=== PATIENT | female | born 1980 | race Caucasian/White ===

== ENCOUNTER 2016-09-03 15:22 | Emergency (ER) | payer OTHER ==
[~2016-09-03] VITALS: Ht 165.1 cm; Wt 65.8 kg
[~2016-09-03 15:22] MED LIST: ALEVE220 MG PO; FLEXERIL PO; KEFLEX500 MG PO; LEVAQUIN 250 M250 MG PO; NOHOMEMEDICATIONS; NORCO 5-325 TA1 EACH PO; PERCOCET 5-3251 EACH PO; PERCOCET PO; PROBIOTIC1 EAC1 PO; TYLENOL325 MG PO; VANCOMYCIN100 MG/ML PO; ZOFRAN ODT4 MG PO
[2016-09-03 15:58] LABS: URINE BILIRUBIN NEGATIVE (Negative); URINE BLOOD 3+ (Negative); URINE COLOR YELLOW; URINE GLUCOSE-RANDOM* NEGATIVE (Negative); URINE KETONES NEGATIVE (Negative); URINE NITRITE NEGATIVE (Negative); URINE PROTEIN (DIPSTICK) NEGATIVE (Negative); URINE SPECIFIC GRAVITY <= 1.005 (1.003-1.035); URINE UROBILINOGEN 0.2 E.U./dl (0.2-1.0)
[2016-09-03 16:05] LABS: BACTERIA None Seen /HPF (None Seen); SQUAMOUS 0-3 Few /LPF (0-3); URINE RBC 3-10 Few /HPF (0-2); URINE WBC None Seen /HPF (0-5)
[2016-09-03 16:06] LABS: CASTS None Seen /LPF (None Seen); CRYSTALS None Seen /LPF (None Seen)
[2016-09-03 16:36] LABS: ABSOLUTE NEUTROPHILS 6.3 thou/uL (1.4-8.2); BASOPHILS 0.6 % (0.0-2.0); EOSINOPHILS 0.3 % (0.0-3.0); HEMATOCRIT 40.4 % (37.0-47.0); LYMPHOCYTES 17.5 % (24.0-44.0); MANUAL DIFF NO; MCH 31.7 pg (26.0-34.0); MCHC 34.6 g/dL (28.0-37.0); MCV 91.7 fL (80.0-100.0); MONOCYTES 5.2 % (1.0-8.0); PLATELET COUNT 230 thou/uL (150-400); POLYS 76.4 % (36.0-66.0); RBC 4.41 mil/uL (4.20-5.00); WBC 8.2 thou/uL (4.0-11.0)
[2016-09-03 16:39] LABS: CALCIUM 8.6 mg/dL (8.5-10.1); CREATININE 0.7 mg/dL (0.6-1.0); POTASSIUM 3.7 mmol/L (3.5-5.1)
[2016-09-03] MEDS ORDERED: NORCO 5-325 TA1 EACH PO (17:24)
[2016-09-03] MEDS ORDERED: FLOMAX0.4 MG PO (17:24)
== END 2016-09-03 17:46 | disposition home or self-care (01) ==
LOC: ER 15:22
PROVIDERS: Nurse Practitioner
DX: N20.0 Calculus of kidney (principal); N18.9 Chronic kidney disease, unspecified; F17.210 Nicotine dependence, cigarettes, uncomplicated; Z90.710 Acquired absence of both cervix and uterus; Z90.89 Acquired absence of other organs; Z96.0 Presence of urogenital implants; Z88.1 Allergy status to other antibiotic agents; Z88.6 Allergy status to analgesic agent

== ENCOUNTER 2017-02-04 11:45 | Emergency (ER) | payer OTHER ==
[~2017-02-04] VITALS: Ht 165.1 cm; Wt 65.8 kg
[~2017-02-04 11:45] MED LIST changes: +FLOMAX0.4 MG PO; +IBUPROFEN 600600 M1 PO
[2017-02-04 12:29] LABS: URINE BILIRUBIN NEGATIVE (Negative); URINE BLOOD 3+ (Negative); URINE COLOR YELLOW; URINE GLUCOSE-RANDOM* NEGATIVE (Negative); URINE KETONES NEGATIVE (Negative); URINE NITRITE NEGATIVE (Negative); URINE PROTEIN (DIPSTICK) NEGATIVE (Negative); URINE UROBILINOGEN 0.2 E.U./dl (0.2-1.0)
[2017-02-04 12:48] LABS: ABSOLUTE NEUTROPHILS 8.7 thou/uL (1.4-8.2); BASOPHILS 0.6 % (0.0-2.0); EOSINOPHILS 0.4 % (0.0-3.0); HEMATOCRIT 42.5 % (37.0-47.0); HEMOGLOBIN 14.5 gm/dL (12.0-15.0); LYMPHOCYTES 13.7 % (24.0-44.0); MCH 31.6 pg (26.0-34.0); MCHC 34.2 g/dL (28.0-37.0); MCV 92.6 fL (80.0-100.0); MONOCYTES 3.8 % (1.0-8.0); PLATELET COUNT 223 thou/uL (150-400); POLYS 81.5 % (36.0-66.0); RBC 4.59 mil/uL (4.20-5.00); RDW 12.5 % (10.5-14.5); WBC 10.7 thou/uL (4.0-11.0)
[2017-02-04 12:50] LABS: MANUAL DIFF NO
[2017-02-04 12:58] LABS: CALCIUM 8.7 mg/dL (8.5-10.1); CREATININE 0.7 mg/dL (0.6-1.0); POTASSIUM 4.1 mmol/L (3.5-5.1)
[2017-02-04 13:01] LABS: ALBUMIN 3.9 g/dL (3.4-5.0); DIRECT BILIRUBIN 0.1 mg/dL (<0.1-0.3); TOTAL BILIRUBIN 0.5 mg/dL (<0.1-1.0); TOTAL PROTEIN 7.3 g/dL (6.4-8.2)
[2017-02-04 13:06] LABS: CASTS None Seen /LPF (None Seen); SQUAMOUS >10 Many /LPF (0-3); URINE RBC >20 Many /HPF (0-2); URINE WBC 0-5 Rare /HPF (0-5)
[2017-02-04 13:07] LABS: BACTERIA None Seen /HPF (None Seen); CRYSTALS None Seen /LPF (None Seen)
[2017-02-04] MEDS ORDERED: PHENERGAN 25 MG25 M1 PO (14:52)
[2017-02-04] MEDS ORDERED: ZOFRAN ODT4 MG PO (14:52)
[2017-02-04] MEDS ORDERED: NORCO 5-325 TA1 EACH PO (15:14)
== END 2017-02-04 15:22 | disposition home or self-care (01) ==
LOC: ER 11:45
PROVIDERS: Emergency Medicine
DX: N83.291 Other ovarian cyst, right side (principal); K80.50 Calculus of bile duct without cholangitis or cholecystitis without obstruction; N18.9 Chronic kidney disease, unspecified; F17.210 Nicotine dependence, cigarettes, uncomplicated; Z96.89 Presence of other specified functional implants; Z90.710 Acquired absence of both cervix and uterus; Z88.1 Allergy status to other antibiotic agents; Z88.6 Allergy status to analgesic agent; Z88.8 Allergy status to other drugs, medicaments and biological substances

== ENCOUNTER 2017-08-25 22:29 | Emergency (ER) | payer OTHER ==
[~2017-08-25] VITALS: Ht 165.1 cm; Wt 68.0 kg
[~2017-08-25 22:29] MED LIST changes: +PHENERGAN 25 MG25 M1 PO
[2017-08-25 23:29] LABS: URINE BILIRUBIN NEGATIVE (Negative); URINE BLOOD 1+ (Negative); URINE CLARITY CLEAR; URINE COLOR YELLOW; URINE GLUCOSE-RANDOM* NEGATIVE (Negative); URINE KETONES TRACE (Negative); URINE NITRITE-REFLEX NEGATIVE (Negative); URINE PROTEIN (DIPSTICK) NEGATIVE (Negative); URINE UROBILINOGEN 0.2 E.U./dl (0.2-1.0)
[2017-08-25 23:33] LABS: ABSOLUTE NEUTROPHILS 10.8 thou/uL (1.4-8.2); BASOPHILS 0.5 % (0.0-2.0); EOSINOPHILS 2.1 % (0.0-3.0); HEMATOCRIT 39.7 % (37.0-47.0); HEMOGLOBIN 13.6 gm/dL (12.0-15.0); LYMPHOCYTES 11.7 % (24.0-44.0); MCH 30.9 pg (26.0-34.0); MCHC 34.3 g/dL (28.0-37.0); MONOCYTES 8.2 % (1.0-8.0); PLATELET COUNT 202 thou/uL (150-400); POLYS 77.5 % (36.0-66.0); RBC 4.41 mil/uL (4.20-5.00); RDW 12.2 % (10.5-14.5)
[2017-08-25 23:36] LABS: CALCIUM 8.7 mg/dL (8.5-10.1); CREATININE 0.8 mg/dL (0.6-1.0); POTASSIUM 3.6 mmol/L (3.5-5.1)
[2017-08-25 23:36] LABS: URINE LEUKOCYTES-REFLEX 1+ (Negative)
[2017-08-25 23:46] LABS: BACTERIA-REFLEX >30 Many /HPF (None Seen); CASTS None Seen /LPF (None Seen); CRYSTALS None Seen /LPF (None Seen); MUCUS 0-3 Light strn/LPF (None Seen); SQUAMOUS 4-10 Moderate /LPF (0-3); URINE RBC 3-10 Few /HPF (0-2)
[2017-08-25 23:50] LABS: ALBUMIN 3.2 g/dL (3.4-5.0); DIRECT BILIRUBIN 0.1 mg/dL (<0.1-0.3); TOTAL BILIRUBIN 0.4 mg/dL (<0.1-1.0); TOTAL PROTEIN 7.2 g/dL (6.4-8.2)
[2017-08-26] MEDS ORDERED: NORCO 5-325 TA1 EACH PO (01:42)
[2017-08-26] MEDS ORDERED: PRILOSEC 20 MG20 MG PO (01:42)
== END 2017-08-26 02:14 | disposition home or self-care (01) ==
LOC: ER 22:29
PROVIDERS: Emergency Medicine
DX: N39.0 Urinary tract infection, site not specified (principal); N18.9 Chronic kidney disease, unspecified; F17.210 Nicotine dependence, cigarettes, uncomplicated; Z90.710 Acquired absence of both cervix and uterus; Z90.49 Acquired absence of other specified parts of digestive tract; Z88.1 Allergy status to other antibiotic agents; Z88.8 Allergy status to other drugs, medicaments and biological substances

== ENCOUNTER 2017-08-28 20:53 | Inpatient (IN) | payer OTHER ==
[~2017-08-28] VITALS: Ht 165.1 cm; Wt 72.6 kg
--- NOTE | ~2017-08-28 | HC ---
[facility] [place] [address] CONSULTATION Name: HERIBERTO LEDESMA Room #: 417-I ADM IN M.R.#: [id number] Admission: 08/29/17 Attend Phys: Anders Yoon MD Discharge: Date of : 84 Report #: [id number] THIS REPORT FOR: //name// CC: DR PITA JOHNSON physician/PCP Anders Yoon MD DATE OF SERVICE: 08/31/2017 HISTORY OF PRESENT ILLNESS: The patient is a 37-year-old female who complains of mid epigastric and right upper quadrant abdominal pain. This has been fairly constant, has been ongoing for the last week, became progressively worse. She has had multiple CT scans in the past, all of which were essentially negative. Her most recent one, however, shows moderate stool over the ascending, transverse and descending colon, possible thickening in the distal colon involving the descending and sigmoid colon. This may reflect a mild distal colitis. The patient denies any diarrhea. She denies any blood in her stools. No previous history of endoscopy, no significant history of reflux. She denies any dysphagia or odynophagia. She began taking omeprazole approximately a week ago, reports no significant improvement. She denies any blood in her stools. She has been having intermittent nausea and vomiting as well as increased belching and right shoulder pain at times. An ultrasound of the abdomen on 08/25 was normal other than the mild prominence of the extrahepatic bile duct. She has had urinary tract infections in the past. IVP is ordered. Dr. Hernandez with General Surgery has also evaluated the patient, and a PIPIDA scan has been ordered as well for tomorrow. Previous history of endometriosis, status post hysterectomy. She does have one remaining ovary. She denies any chest pain or shortness of breath currently. No fevers or chills. She has been treated for recent urinary tract infection. The patient takes ibuprofen on a daily basis. ALLERGIES: CIPRO, TORADOL, PREDNISONE. PAST MEDICAL HISTORY: Previous hysterectomy, endometriosis, appendectomy, ureteral stent placement, urinary tract infections, history of C. diff, previous D and C and tubal ligation. FAMILY HISTORY: Negative for colon cancer or inflammatory bowel disease. SOCIAL HISTORY: She does smoke. She denies any alcohol use. REVIEW OF SYSTEMS: As per HPI. PHYSICAL EXAMINATION: VITAL SIGNS: Temperature is 98.7, she was febrile yesterday at 101.9. Pulse is 52, blood pressure 112/68, respiratory rate is 16. [place] [address] CONSULTATION Name: HERIBERTO LEDESMA Room #: 417-I ADM IN ..#: [id number] Admission: 08/29/17 Attend Phys: Anders Yoon MD Discharge: Date of : 84 Report #: [id number] GENERAL: She is alert and oriented x 3, in no acute distress. HEENT: Sclerae nonicteric. Oropharynx clear. NECK: Supple, without lymphadenopathy. HEART: Regular rate and rhythm. CHEST: Clear to auscultation bilaterally. ABDOMEN: Soft. She is tender to palpation in the midepigastrium, right upper quadrant, nondistended, normoactive bowel sounds. EXTREMITIES: No cyanosis, clubbing or edema. LABORATORY DATA: Sodium 142, potassium 4.0, chloride 108, bicarbonate 26, BUN 5, creatinine 0.7. AST 16, lipase 60, total bilirubin 0.3, alkaline phosphatase 81, ALT is 24, total protein 8.3, albumin 3.4. Lactic acid level 1.2. WBC is 9.7, was 14 on 08/25. Hemoglobin 12.6, platelet count 245. UA on 08/28 was positive for nitrites, leukocytes +1, bacteria was 1-9. ASSESSMENT AND PLAN: Mid epigastric and right upper quadrant abdominal pain, etiology is unclear at this time. Recent CT scan and ultrasound were essentially negative, although they bring up the possibility of a colitis. This was in the descending colon and sigmoid colon; however, the patient is not having any pain in her left side, and she denies any diarrhea or blood in her stools. She does take ibuprofen on a regular basis. It is possible she could potentially have peptic ulcer disease. She has been on omeprazole for the last week. Agree with PIPIDA scan to rule out gallbladder dysfunction. If this is negative, then would recommend proceeding with an upper endoscopy, may need to consider colonoscopy as well. We will make further recommendations as studies are complete. Thank you for allowing me to participate in her care. <ELECTRONICALLY SIGNED> By: Gutierrez Espinosa MD 09/01/17 1128 [id number] Gutierrez Espinosa MD /nt
--- NOTE | ~2017-08-28 | HC ---
[facility] [place] [address] CONSULTATION Name: HERIBERTO LEDESMA Room #: 417-I [facility] IN M.R.#: [id number] Admission: 08/29/17 Attend Phys: Anders Yoon MD Discharge: 09/01/17 Date of : 84 Report #: [id number] THIS REPORT FOR: //name// CC: [facility] physician/PCP Anders Yoon CHIEF COMPLAINT: UTI. HISTORY OF PRESENT ILLNESS: The patient is a 37-year-old woman who is being seen today at the request of Dr. Espinoza for evaluation and management of urinary tract infection. Specifically, she is hospitalized with a Klebsiella UTI. Upon review of the history, she reports a history of right renal abscess and prior UTIs. She is going to undergo evaluation of her gallbladder. She is complaining of pain in the right upper quadrant and right chest pain. She has no urgency, frequency or lower urinary tract symptoms. ALLERGIES: TO CIPRO, TORADOL, PREDNISONE. ILLNESSES: Abdominal pain, biliary colic. MEDICATIONS: Refer to the med reconciliation sheet. REVIEW OF SYSTEMS: No shortness of breath or chest pain. PHYSICAL EXAMINATION: GENERAL: She is comfortable appearing woman. VITAL SIGNS: Temperature is 36.7, pulse 54, respirations 18, blood pressure 112/62. ABDOMEN: Soft, without masses. LABORATORY DATA: White count 7100, hemoglobin 12.1, hematocrit 37.2, platelets 235,000. Sodium is 141, potassium 4.5, chloride 108, CO2 of 26, BUN 6, creatinine 0.6. Urinalysis on admission, slightly yellow, slightly cloudy, specific gravity is 1.025, pH is 6, nitrites positive, 16-25 white cells, 4-[address] scan shows a tiny left renal cyst. No renal mass or obstruction or stones. The bladder is unremarkable. Changes consistent with previous hysterectomy. Urine culture does show Klebsiella sensitive to Rocephin, which she is receiving. IMPRESSION: Urinary tract infection. PLAN: I recommend completion of 2 weeks of antibiotics. No intervention at this time. <ELECTRONICALLY SIGNED> By: Kyle Braun MD 09/02/17 0722 [id number] Kyle Braun MD /nt
[~2017-08-28 20:53] MED LIST changes: +PRILOSEC 20 MG20 MG PO
[2017-08-28 21:35] VITALS: BP 122/83
[2017-08-28 22:02] LABS: ABSOLUTE NEUTROPHILS 8.2 thou/uL (1.4-8.2); BASOPHILS 0.6 % (0.0-2.0); EOSINOPHILS 3.7 % (0.0-3.0); HEMATOCRIT 43.4 % (37.0-47.0); HEMOGLOBIN 14.9 gm/dL (12.0-15.0); LYMPHOCYTES 15.3 % (24.0-44.0); MCH 30.8 pg (26.0-34.0); MCHC 34.4 g/dL (28.0-37.0); MCV 89.6 fL (80.0-100.0); MONOCYTES 7.2 % (1.0-8.0); PLATELET COUNT 265 thou/uL (150-400); POLYS 73.2 % (36.0-66.0); RBC 4.85 mil/uL (4.20-5.00); RDW 12.2 % (10.5-14.5); WBC 11.2 thou/uL (4.0-11.0)
[2017-08-28 22:05] LABS: URINE BLOOD 1+ (Negative); URINE CLARITY SL CLOUDY; URINE COLOR YELLOW; URINE GLUCOSE-RANDOM* NEGATIVE (Negative); URINE KETONES TRACE (Negative); URINE LEUKOCYTES-REFLEX 1+ (Negative); URINE NITRITE-REFLEX POSITIVE (Negative); URINE PROTEIN (DIPSTICK) 1+ (Negative); URINE SPECIFIC GRAVITY 1.025 (1.005-1.035)
[2017-08-28 22:07] LABS: ICTOTEST (BILI CONFIRMATORY) Negative (Negative); URINE BILIRUBIN NEGATIVE (Negative)
[2017-08-28 22:09] LABS: CALCIUM 9.1 mg/dL (8.5-10.1); CREATININE 0.8 mg/dL (0.6-1.0)
[2017-08-28 22:11] LABS: BACTERIA-REFLEX 1-9 Few /HPF (None Seen); CASTS None Seen /LPF (None Seen); CRYSTALS None Seen /LPF (None Seen); SQUAMOUS 4-10 Moderate /LPF (0-3); URINE RBC 0-2 Rare /HPF (0-2)
[2017-08-28 22:15] LABS: ALBUMIN 3.4 g/dL (3.4-5.0); TOTAL BILIRUBIN 0.3 mg/dL (<0.1-1.0); TOTAL PROTEIN 8.3 g/dL (6.4-8.2)
[2017-08-29] MEDS ORDERED: MACROBID 100 M100 M2 PO (00:32)
[2017-08-29 01:04] VITALS: BP 102/63
[2017-08-29 01:31] VITALS: BP 107/70
[2017-08-29 02:50] VITALS: BP 112/65
[2017-08-29 07:50] VITALS: BP 95/64
[2017-08-29 15:59] VITALS: BP 98/52
[2017-08-29 19:05] VITALS: BP 98/46
[2017-08-30 03:23] VITALS: BP 109/70
[2017-08-30 07:00] VITALS: BP 93/56
[2017-08-30 08:00] VITALS: BP 93/56
[2017-08-30 11:31] LABS: HEMATOCRIT 36.6 % (37.0-47.0); MCHC 34.6 g/dL (28.0-37.0); MCV 89.8 fL (80.0-100.0); RBC 4.07 mil/uL (4.20-5.00); RDW 12.1 % (10.5-14.5); WBC 9.7 thou/uL (4.0-11.0)
[2017-08-30 11:32] LABS: HEMOGLOBIN 12.6 gm/dL (12.0-15.0)
[2017-08-30 11:41] LABS: CALCIUM 8.4 mg/dL (8.5-10.1); CREATININE 0.7 mg/dL (0.6-1.0); MAGNESIUM 2.1 mg/dL (1.8-2.4)
[2017-08-30 15:15] VITALS: BP 138/73
[2017-08-30 15:28] VITALS: BP 97/56
[2017-08-30 20:06] VITALS: BP 112/72
[2017-08-31 05:24] VITALS: BP 103/58
[2017-08-31 07:20] VITALS: BP 112/68
[2017-08-31 14:59] LABS: ABSOLUTE NEUTROPHILS 4.7 thou/uL (1.4-8.2); BASOPHILS 0.8 % (0.0-2.0); EOSINOPHILS 3.1 % (0.0-3.0); HEMATOCRIT 37.2 % (37.0-47.0); HEMOGLOBIN 12.7 gm/dL (12.0-15.0); LYMPHOCYTES 22.4 % (24.0-44.0); MCH 30.7 pg (26.0-34.0); MCHC 34.1 g/dL (28.0-37.0); MONOCYTES 7.8 % (1.0-8.0); PLATELET COUNT 235 thou/uL (150-400); POLYS 65.9 % (36.0-66.0); RBC 4.14 mil/uL (4.20-5.00); RDW 12.4 % (10.5-14.5); WBC 7.1 thou/uL (4.0-11.0)
[2017-08-31 15:17] LABS: ALBUMIN 2.6 g/dL (3.4-5.0); CALCIUM 8.4 mg/dL (8.5-10.1); CREATININE 0.6 mg/dL (0.6-1.0); POTASSIUM 4.5 mmol/L (3.5-5.1); TOTAL BILIRUBIN 0.3 mg/dL (<0.1-1.0); TOTAL PROTEIN 6.7 g/dL (6.4-8.2)
[2017-08-31 16:13] VITALS: BP 135/80
[2017-08-31 16:47] VITALS: BP 128/78
[2017-08-31 19:16] VITALS: BP 111/63
[2017-09-01 03:16] VITALS: BP 112/62
[2017-09-01 07:15] VITALS: BP 110/65
[2017-09-01 15:40] VITALS: BP 150/70
[2017-09-01] MEDS ORDERED: CEFPODOXIME PR200 M1 PO (16:12)
[2017-09-01] MEDS ORDERED: NORCO 5-325 TA1 EACH PO (16:13)
[2017-09-01 16:45] VITALS: BP 150/70
== END 2017-09-01 17:58 | disposition home or self-care (01) | DRG 872 ==
LOC: ER 20:53 → 4E 08-29 00:01 → EROBS 08-29 00:01 → 4E 08-29 01:00 → ENTRNSPT 09-01 17:27 → 4E 09-01 17:58
PROVIDERS: Emergency Medicine; Internal Medicine; Surgery
DX: A41.9 Sepsis, unspecified organism (principal); N10 Acute pyelonephritis; N18.9 Chronic kidney disease, unspecified; F17.210 Nicotine dependence, cigarettes, uncomplicated; K59.00 Constipation, unspecified; B96.1 Klebsiella pneumoniae [K. pneumoniae] as the cause of diseases classified elsewhere; Z90.49 Acquired absence of other specified parts of digestive tract; Z90.710 Acquired absence of both cervix and uterus; Z71.6 Tobacco abuse counseling; Z88.1 Allergy status to other antibiotic agents; Z88.8 Allergy status to other drugs, medicaments and biological substances
CPT/HCPCS: 10084